=== PATIENT | female | born 1945 | race Caucasian/White ===

== ENCOUNTER → 2017-05-06 | Outpatient (CLI) | payer MEDICARE, BC ==
--- NOTE | 2017-05-08 09:35 | REPMRS ---
Patient History The patient states she had a clinical breast exam in 05/20 Patient is postmenopausal. No known family history of cancer. Taking unspecified hormones for 9 years. Digital Woman Screen Mammo: May 06, 2017 - Exam #: [id number] Bilateral CC and MLO view(s) were taken. Technologist: Michelle Lopez, Technologist Prior study comparison: May 14, 2016, digital woman screen mammo performed at [facility]. May 13, 2015, digital woman screen mammo performed at [facility]. May 13, 2014, digital woman screen mammo performed at [facility]. FINDINGS: There are scattered fibroglandular densities. There is a moderate amount of residual fibroglandular tissue which is fairly symmetric. There is no interval development of dominant mass, architectural distortion, or clustered microcalcification typical of malignancy. There has been no change in the appearance of the mammogram from the prior studies. ASSESSMENT: BI-RADS/ACR category 1 mammogram. Negative. Recommendation Routine screening mammogram of both breasts in 1 year (for women over age 40). This mammogram was interpreted with the aid of an FDA-approved computer-aided dectection system. Electronically Signed By: Ladarius العلي MD 05/08/17 0359
== END ==
LOC: M WHC 07:58
PROVIDERS: ATTEND Nurse Practitioner Family
DX: Z01.419 Encounter for gynecological examination (general) (routine) without abnormal findings (principal); Z12.31 Encounter for screening mammogram for malignant neoplasm of breast; Z78.0 Asymptomatic menopausal state; Z12.12 Encounter for screening for malignant neoplasm of rectum; Z92.0 Personal history of contraception
CPT/HCPCS: 82270; G0101; G0202

== ENCOUNTER → 2017-07-05 | Outpatient (REF) | payer MEDICARE, BC ==
[2017-07-05 20:07] LABS: BACTERIA, URINE MOD AMOUNT; HYALINE CAST, URINE NONE SEEN /lpf (0-1); MICROSCOPIC EXAM PERFORMED; RBC, URINE NONE SEEN /hpf (0-3); SQUAMOUS EPITHELIAL CELL URINE LARGE AMOUNT /hpf (SMALL AMT)
== END ==
LOC: M LAB REF 10:43
PROVIDERS: ATTEND Nurse Practitioner Adult Health
DX: N39.0 Urinary tract infection, site not specified (principal)

== ENCOUNTER → 2018-06-20 | Outpatient (CLI) | payer MEDICARE, BC | LOC: M WHC 09:33 | DX: Z12.31 Encounter for screening mammogram for malignant neoplasm of breast (principal); Z78.0 Asymptomatic menopausal state; Z92.29 Personal history of other drug therapy | CPT/HCPCS: 77067 ==

== ENCOUNTER 2018-09-06 06:37 | Emergency (ER) | payer MEDICARE, BC ==
[2018-09-06 08:17] LABS: ANION GAP 6 MEQ/L (8-16); BLOOD UREA NITROGEN 12 MG/DL (7-18); CALCIUM LEVEL 8.3 MG/DL (8.8-10.2); CARBON DIOXIDE LEVEL 28 MEQ/L (21-32); CHLORIDE LEVEL 107 MEQ/L (98-107); CREATININE FOR GFR 0.68 MG/DL (0.55-1.30); GLOMERULAR FILTRATION RATE > 60.0 (>39); GLUCOSE, FASTING 87 MG/DL (70-100); POTASSIUM SERUM 4.4 MEQ/L (3.5-5.1); SODIUM LEVEL 141 MEQ/L (136-145)
== END 2018-09-06 08:37 | disposition home or self-care (01) ==
LOC: M ED 06:37
DX: M79.661 Pain in right lower leg (principal); M79.662 Pain in left lower leg; Z79.890 Hormone replacement therapy; Z88.0 Allergy status to penicillin; Z88.2 Allergy status to sulfonamides
CPT/HCPCS: 93970

== ENCOUNTER → 2019-06-26 | Outpatient (CLI) | payer MEDICARE, BC ==
[~2019-06-26] MED LIST: AMOX; BENZ200C70; ESTR1MIS; PROAAER10
--- NOTE | 2019-06-26 10:51 | REPMRS ---
Patient History The patient states she had a clinical breast exam in 06/2019. Patient is postmenopausal. No known family history of cancer. Took unspecified hormones for 10 years. 3D TOMOSYNTHESIS WAS PERFORMED. [facility] lifetime risk for breast cancer is 2.9%. Digital Woman Screen Mammo: June 26, 2019 - Exam #: [id number] Bilateral CC and MLO view(s) were taken. Technologist: Vilma Bauman, Technologist Prior study comparison: June 20, 2018, bilateral digital woman screen mammo performed at [facility]. May 06, 2017, digital woman screen mammo performed at [facility]. FINDINGS: The breast tissue is heterogeneously dense. This may lower the sensitivity of mammography. There has been no change in the appearance of the mammogram from the prior studies. There is a moderate amount of residual fibroglandular tissue which is fairly symmetric. There is no interval development of dominant mass, areas of architectural distortion, or clustered microcalcification typical of malignancy. Assessment: BI-RADS/ACR category 1 mammogram. Negative Mammogram. Recommendation Routine screening mammogram in 1 year (for women over age 40). This mammogram was interpreted with the aid of an FDA-approved computer-aided dectection system. Electronically Signed By: Javier Toussaint MD 06/26/19 [id number]
== END ==
LOC: M WHC 08:46
PROVIDERS: ATTEND Nurse Practitioner Family
DX: Z12.31 Encounter for screening mammogram for malignant neoplasm of breast (principal); Z78.0 Asymptomatic menopausal state; Z92.29 Personal history of other drug therapy

== ENCOUNTER → 2019-08-17 | Outpatient (REF) | payer MEDICARE, BC | LOC: M SFHCWAGY 17:04 | PROVIDERS: ATTEND Nurse Practitioner Family | DX: R31.29 Other microscopic hematuria (principal) | CPT/HCPCS: 81002; 87086; G0463 ==

== ENCOUNTER → 2019-09-04 | Outpatient (REF) | LOC: M LAB LCGH 14:53 | PROVIDERS: ATTEND Physician Assistant | DX: D48.5 Neoplasm of uncertain behavior of skin (principal) ==

== ENCOUNTER → 2020-07-01 | Outpatient (CLI) | payer MEDICARE, BC ==
--- NOTE | 2020-07-01 12:34 | REPMRS ---
Patient History The patient states she has not had a clinical breast exam in over a year. No known family history of cancer. Took unspecified hormones for 10 years. Digital Woman Screen Mammo: July 01, 2020 - Exam #: [id number] Bilateral CC and MLO view(s) were taken. Technologist: Gwendolyn Trujillo, Technologist Prior study comparison: June 26, 2019, bilateral digital woman screen mammo performed at [facility]. June 20, 2018, bilateral digital woman screen mammo performed at [facility]. FINDINGS: The breast tissue is heterogeneously dense. This may lower the sensitivity of mammography. The Volpara volumetric breast density category is: C. There is a moderate amount of heterogeneously dense fibroglandular tissue which is fairly symmetric. There is no interval development of dominant mass, architectural distortion, or grouped microcalcification typical of malignancy. There has been no change in the appearance of the mammogram from the prior studies. 3-D tomosynthesis shows no additional findings. Assessment: BI-RADS/ACR category 1 mammogram. Negative Mammogram. Recommendation Routine screening mammogram of both breasts in 1 year (for women over age 40). This patient's Lifetime Breast Cancer RIsk is estimated at 2.7 %. This mammogram was interpreted with the aid of an FDA-approved computer-aided dectection system. Electronically Signed By: Ladarius العلي MD 07/01/20 2240
== END ==
LOC: M WHC 10:48
PROVIDERS: ATTEND Nurse Practitioner Family
DX: Z12.31 Encounter for screening mammogram for malignant neoplasm of breast (principal)

== ENCOUNTER 2020-09-20 09:07 | Emergency (ER) | payer MEDICARE, BC ==
[~2020-09-20] VITALS: Ht 170.2 cm; Wt 63.6 kg
--- NOTE | 2020-09-20 10:07 | REP ---
INDICATION: Syncope/near-syncope. COMPARISON: None. TECHNIQUE: SINGLE PORTABLE AP VIEW OF THE CHEST WAS PERFORMED. FINDINGS: THERE IS NO ACUTE INFILTRATE OR PULMONARY EDEMA. LUNGS ARE CLEAR. HEART IS NOT SIGNIFICANTLY ENLARGED. MEDIASTINAL SILHOUETTE IS UNREMARKABLE. THE VISUALIZED OSSEOUS STRUCTURES ARE INTACT. IMPRESSION: NO ACUTE PULMONARY DISEASE. <Electronically signed by Javier Toussaint > 09/20/20 1007
[2020-09-20 10:16] LABS: BASO % 0.8 % (0.0-1.0); EOS # 0.1 10^3/uL (0.0-0.5); EOS % 1.5 % (0.0-3.0); HEMATOCRIT 42.4 % (36.0-47.0); HEMOGLOBIN 13.4 g/dl (12.0-15.5); LYMPH # 0.8 10^3/uL (1.5-5.0); LYMPH % 15.1 % (24.0-44.0); MEAN CORPUSCULAR HGB CONC 31.6 g/dl (32.0-36.5); MEAN CORPUSCULAR VOLUME 95.1 fl (80.0-96.0); MONO # 0.4 10^3/uL (0.0-0.8); MONO % 6.8 % (0.0-5.0); NEUTROPHILS % 75.4 % (36.0-66.0); PLATELET COUNT, AUTOMATED 240 10^3/uL (150-450); RED BLOOD COUNT 4.46 10^6/uL (4.00-5.40); WHITE BLOOD COUNT 5.3 10^3/uL (4.0-10.0)
[2020-09-20 10:47] LABS: BLOOD UREA NITROGEN 15 MG/DL (7-18); CALCIUM LEVEL 9.2 MG/DL (8.8-10.2); CARBON DIOXIDE LEVEL 32 MEQ/L (21-32); CHLORIDE LEVEL 106 MEQ/L (98-107); CPK CREATINE PHOSPHOKINASE 45 U/L (26-192); CREATININE FOR GFR 0.78 MG/DL (0.55-1.30); GLOMERULAR FILTRATION RATE > 60.0 (>39); GLUCOSE, FASTING 85 MG/DL (70-100); MB/CK RELATIVE INDEX 4.44 (< OR =4); POTASSIUM SERUM 4.6 MEQ/L (3.5-5.1); SODIUM LEVEL 140 MEQ/L (136-145); TROPONIN I < 0.02 NG/ML (< 0.10)
[2020-09-20] MEDS ORDERED: NS 500 ML IV ONE (11:00)
--- NOTE | 2020-09-20 11:58 | REPVR ---
PROCEDURE INFORMATION: Exam: CT Head Without Contrast Exam date and time: 09/20/2020 11:46 AM Age: 75 years old Clinical indication: Pain; Headache; Additional info: Elevated blood pressure, pre syncope, headache TECHNIQUE: Imaging protocol: Computed tomography of the head without contrast. Radiation optimization: All CT scans at this facility use at least one of these dose optimization techniques: automated exposure control; mA and/or kV adjustment per patient size (includes targeted exams where dose is matched to clinical indication); or iterative reconstruction. COMPARISON: No relevant prior studies available. FINDINGS: Brain: There is no acute intracranial hemorrhage or mass effect. Mild diffuse volume loss is within the range of normal for patient age. There are small vessel ischemic changes within the periventricular and subcortical white matter, but the normal cano/white matter delineation is maintained. Cerebral ventricles: No ventriculomegaly. Bones/joints: Unremarkable. No acute fracture. Paranasal sinuses: Visualized sinuses are unremarkable. No fluid levels. Mastoid air cells: Visualized mastoid air cells are well aerated. Soft tissues: Unremarkable. IMPRESSION: No acute intracranial hemorrhage or edema. Electronically signed by: Alida Lind On 09/20/2020 11:58:38 AM
[2020-09-20] MEDS ORDERED: lisinopriL 10 MG TAB PO ONE ×2 (13:00→15:15)
[2020-09-20 13:30] LABS: CK-MB VALUE MASS 1.9 NG/ML (<3.6); CPK CREATINE PHOSPHOKINASE 40 U/L (26-192); MB/CK RELATIVE INDEX 4.75 (< OR =4); TROPONIN I < 0.02 NG/ML (< 0.10)
[2020-09-20] MEDS ORDERED: FUROSEMIDE 40MG/4ML VIAL (J1940) IV ONE (15:15)
[2020-09-20] MEDS ORDERED: CARVedilol 6.25 MG TAB PO ONE (16:30)
[2020-09-20 16:44] VITALS: BP 177/97
[2020-09-20] MEDS ORDERED: ISOVUE-370 76% 100ML VIAL As Ordered ONE (16:52)
[2020-09-20] MEDS ORDERED: LISI10TA4 PO (17:54)
[2020-09-20] MEDS ORDERED: CARV6.25 PO (17:54)
[2020-09-20] MEDS ORDERED: CHLO125TA PO (17:54)
--- NOTE | 2020-09-20 18:10 | REPVR ---
PROCEDURE INFORMATION: Exam: CT Abdomen And Pelvis With Contrast Exam date and time: 09/20/2020 5:09 PM Age: 75 years old Clinical indication: Other: Fluctuation of BP, concern for adrenal mass TECHNIQUE: Imaging protocol: Computed tomography of the abdomen and pelvis with intravenous contrast. Radiation optimization: All CT scans at this facility use at least one of these dose optimization techniques: automated exposure control; mA and/or kV adjustment per patient size (includes targeted exams where dose is matched to clinical indication); or iterative reconstruction. Contrast material: ISOVUE 370; Contrast volume: 100 ml; Contrast route: INTRAVENOUS (IV); COMPARISON: No relevant prior studies available. FINDINGS: Lungs: Clear appearing lung bases. Heart: There is mild cardiomegaly and no evidence of pericardial effusion. Liver: Normal appearing liver. Gallbladder and bile ducts: Normal appearing gallbladder. Normal common bile duct. Pancreas: Pancreas is normal in size. Spleen: Normal size spleen. Adrenal glands: Normal. No mass. Kidneys and ureters: There is enhancement of both kidneys. Stomach and bowel: The cecum is in the right pelvis and there is no evidence of inflammation in the region of the cecum. Intraperitoneal space: There is no evidence of mesenteric mass. Vasculature: There is severe calcification at the origin of the right renal artery consistent with renal artery stenosis. There is stenosis at the origin of the celiac artery. There is opacification of the SMA. There is opacification of the aorta with calcified atherosclerotic changes. Lymph nodes: There is no evidence of lymphadenopathy. Urinary bladder: Normal urinary bladder. Reproductive: There is a pessary within the vagina. Patient is status post hysterectomy. Bones/joints: There is a grade 2 spondylolisthesis of L5 on S1 producing severe central spinal canal stenosis and L5 neural foraminal narrowing. Soft tissues: Unremarkable. IMPRESSION: 1. There is calcification in narrowing at the origin of the right renal artery. 2. Normal sized adrenal glands. 3. There is severe central spinal canal stenosis L5-S1. Electronically signed by: Sameer Keating On 09/20/2020 18:10:14 PM
[2020-09-20 18:30] VITALS: BP 137/66
--- NOTE | 2020-09-20 21:03 | ECGEPIP ---
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
== END 2020-09-20 18:44 | disposition home or self-care (01) ==
LOC: M ED 09:07
DX: I10 Essential (primary) hypertension (principal); R55 Syncope and collapse; R00.1 Bradycardia, unspecified; I34.1 Nonrheumatic mitral (valve) prolapse; K57.90 Diverticulosis of intestine, part unspecified, without perforation or abscess without bleeding; K64.9 Unspecified hemorrhoids; Z88.0 Allergy status to penicillin; Z88.2 Allergy status to sulfonamides
CPT/HCPCS: 36415; 70450; 71045; 74177; 80048; 81001; 82550; 82553; 84443; 84484; 85025; 87086; 93005; 93041; 94760; 96361; 96374; 99285; J1940; Q9967

== ENCOUNTER → 2020-10-04 | Outpatient (POV) | payer MEDICARE, BC ==
[~2020-10-04] MED LIST changes: +CARV6.25 PO; +CHLO125TA PO; +LISI10TA4 PO
--- NOTE | 2020-10-06 13:53 | IRCOV ---
[facility] IR Consult Office Visit IR Consult Office Visit DATE: Oct 04, 2020 Patient agreed to this telephone consultation. I spent 30 minutes reviewing patient's records, imaging and talking to the patient. REASON FOR CONSULTATION/CHIEF COMPLAINT: Refractory hypertension. Renal artery stenosis. HISTORY OF PRESENT ILLNESS: 75-year-old female previously well, presented with headache, blurred vision and dizziness a few weeks ago. She was seen in the ER where her blood pressure was 220/170. Patient states she had her last annual checkup in April 2020 at which time, there were no problems reported. She has never herself checked her blood pressure before. She denies any chest pain, shortness of breath, altered speech or limb weakness associated. She was started on 2 blood pressure medications and now checks her blood pressure at home and reports they run around 144/74. She denies any side effects of the medications. She is currently on Lisinopril 10 mg twice a day, carvedilol 6.25 mg twice a day and chlorthalidone 12.5 mg when necessary for systolic blood pressure greater than 140. She is taking 81 mg aspirin and atorvastatin. ALLERGIES: Please see below. HOME MEDICATIONS: Please see below. PAST MEDICAL HISTORY: Malignant hypertension Renal artery stenosis Cardiomegaly Degenerative joint disease PAST SURGICAL HISTORY: Hysterectomy FAMILY HISTORY: Coronary artery disease SOCIAL HISTORY: Nonsmoker. Denies alcohol or drugs. REVIEW OF SYSTEMS: Otherwise negative. PHYSICAL EXAMINATION: No video on patient side. LABORATORY DATA: 09/20/2020 hemoglobin 13.4 hematocrit 42.4 WBC 5.3 platelets 240 sodium 140 potassium 4.6 BUN 15 creatinine 0.78 GFR greater than 60 fasting glucose 85 TSH 3.6 Imaging: I personally reviewed the CT abdomen and pelvis with IV contrast performed September 2020. There is a bulky calcification at the origin of the right renal artery with associated stenosis. No accessory renal artery seen. Both kidneys appear unremarkable in size. ASSESSMENT/PLAN: 75-year-old female with malignant hypertension and renal artery stenosis. I agree patient would benefit from a renal angiogram and/or stenting if deemed necessary at the same time. We discussed the risks and benefits of the procedure. Patient would like to proceed and we've scheduled the procedure for late November. This allows time for her to settle on her new medications and for us to gain an understanding of her optimal blood pressure on 2 medications. Thank you for this referral. CC Dr. Fernandez CC Jennifer Duffy SPEEDER TENDER Cc Dr. Chay Olmos cardiology Allergies Coded Allergies: Penicillins (Verified Allergy, Severe, hives, 09/20/20) Sulfa (Sulfonamide Antibiotics) (Verified Allergy, Severe, hives, 09/20/20 ) Home Medications Scheduled Carvedilol (Carvedilol), 1 TAB PO BID Chlorthalidone (Chlorthalidone), 12.5 MG PO DAILY Lisinopril (Lisinopril), 1 TAB PO BID FÉLIX MARTINS MD Oct 06, 2020 13:52
== END ==
LOC: M TMIRPOV 11:17
PROVIDERS: ATTEND Radiology Diagnostic Radiology
DX: I15.0 Renovascular hypertension (principal); I70.1 Atherosclerosis of renal artery; I51.7 Cardiomegaly; Z79.899 Other long term (current) drug therapy; Z88.0 Allergy status to penicillin; Z88.2 Allergy status to sulfonamides; Z90.710 Acquired absence of both cervix and uterus

== ENCOUNTER → 2020-12-05 | Outpatient (CLI) | payer MEDICARE, BC ==
[~2020-12-05] MED LIST changes: +ACETAMINOPHEN 500 MG TAB PO ONE; +DAILTAB PO; +ISOVUE-300 61% 50ML VIAL As Ordered ONE; +LIDOCAINE 1% MDV 20ML VIAL As Ordered ONE; +LIPI20TA PO; +MIDAZOLAM INJ 2MG/2ML VIAL (J2250 PER 1MG) As Ordered ONE; +[UNRECOGNIZED DRUG - CODE]; +diphenhydrAMINE 50MG/ML VIAL (J1200) As Ordered ONE; +fentaNYL 100 MCG/2 ML INJECTION (J3010) As Ordered ONE
--- NOTE | 2020-12-05 09:35 | IRHP ---
[facility] IR Pre-Procedure H & P General Date of Service: Dec 05, 2020 Procedure: Same Day Surgery Interval History and Physical I have seen the patient and reviewed last H & P performed within 30 days. There is no significant interval change. History of Present Illness Chief Complaint The patient is a 75-year-old female admitted with a reason for visit of Refractory Htn, Sandeep. PRE-PROCEDURE DIAGNOSIS: SANDEEP HEART: Normal rate. LUNGS: Normal breathing at rest. ASA Classification ASA Classification: III-Severe systemic dis. Mallampati Score: II NPO: Yes Problems with prior sedation: No Obstructive Sleep Apnea: No Plan moderate sedation Allergies Coded Allergies: Penicillins (Verified Allergy, Severe, hives, 09/20/20) Sulfa (Sulfonamide Antibiotics) (Verified Allergy, Severe, hives, 09/20/20) amoxicillin (Verified Allergy, Mild, 12/01/20) ampicillin (Verified Allergy, Mild, 12/01/20) clavulanic acid (Verified Allergy, Mild, 12/01/20) Home Medications Scheduled Atorvastatin Calcium (Lipitor), 40 MG PO DAILY, (Reported) Carvedilol (Carvedilol), 1 TAB PO BID Chlorthalidone (Chlorthalidone), 12.5 MG PO DAILY Lisinopril (Lisinopril), 1 TAB PO BID Miscellaneous Medications Multivit with Calcium,Iron,Min (Essential Daily), 1 TAB PO, (Reported) Vitamin E (Dl,Tocopheryl Acet) (Vitamin E), (Reported) VS, I&O, 24H, Fishbone Vital Signs/I&O Vital Signs Date Time Temp Pulse Resp B/P (MAP) Pulse Ox O2 Delivery O2 Flow Rate FiO2 12/05/20 08:45 97.3 58 18 99 Room Air Laboratory Data 24H LABS Laboratory Tests 2 12/05/20 09:15: CBC/BMP FÉLIX MARTINS MD Dec 05, 2020 09:35
[2020-12-05 09:37] LABS: HEMATOCRIT 37.3 % (36.0-47.0); HEMOGLOBIN 11.7 g/dl (12.0-15.5); MEAN CORPUSCULAR HEMOGLOBIN 29.9 pg (27.0-33.0); MEAN CORPUSCULAR HGB CONC 31.4 g/dl (32.0-36.5); MEAN CORPUSCULAR VOLUME 95.4 fl (80.0-96.0); PLATELET COUNT, AUTOMATED 221 10^3/uL (150-450); RED BLOOD COUNT 3.91 10^6/uL (4.00-5.40)
[2020-12-05 09:59] LABS: BLOOD UREA NITROGEN 19 MG/DL (7-18); CALCIUM LEVEL 9.2 MG/DL (8.8-10.2); CARBON DIOXIDE LEVEL 29 MEQ/L (21-32); CHLORIDE LEVEL 105 MEQ/L (98-107); CREATININE FOR GFR 0.89 MG/DL (0.55-1.30); GLOMERULAR FILTRATION RATE > 60.0 (>39); GLUCOSE, FASTING 94 MG/DL (70-100); POTASSIUM SERUM 4.2 MEQ/L (3.5-5.1); SODIUM LEVEL 140 MEQ/L (136-145)
[2020-12-05 14:20] VITALS: BP 132/62
--- NOTE | 2020-12-08 10:09 | POST-OPPD ---
Postoperative Procedure Note Date Of Procedure: Dec 05, 2020 Time Of Procedure: 16:00 IR BILATERAL RENAL ANGIOGRAM. Clinical Information: Hypertension refractory to 3 antihypertensives. Renal stenosis on CT scan. Physician: Dr. Martins. Procedure: The patient was advised of the benefits, risks, and alternatives of the procedure and informed consent was obtained. A time out was performed with verification of the patient's name, MRN, site of procedure, and type of procedure to be performed. The patient was positioned in the supine position on the angiographic table. The site was prepped and draped in the usual sterile fashion. Moderate sedation was not performed as patient is bradycardic. The physician spent 45 minutes of continuous bddo-ni-hjum time with the patient. A audograph operator radiograph reveals no gross abnormality. Lidocaine was used for local anesthesia. The right common femoral artery was accessed, under fluoroscopy guidance with a microintroducer set. A short 0.018" [place] wire was inserted and the needle was exchanged for a 4 Fr microintroducer sheath. The guidewire and dilator were removed and a 0.035" Bentson wire was placed into the abdominal aorta. A 6 Fr sheath was placed over the wire. A 6 Togolese renal double curve guiding catheter was then advanced over the wire and used to catheterize the right renal artery under fluoroscopy guidance. Wire was advanced under fluoroscopic guidance into the right renal artery and the guiding catheter was retracted into the aorta. And angiogram was performed this demonstrates rapid filling of bilateral renal arteries with no significant delay, stenosis or occlusion. The catheter, wire and sheath were removed. A Mynx device was used to close the right groin arteriotomy, pressure held and hemostasis achieved. A sterile dressing was applied to the site. The patient tolerated the procedure well and was returned to the PRU in stable condition. EBL: < 5 mL. Complications:None. Impression: Bilateral renal angiogram demonstrates no significant stenosis or occlusion to renal artery flow. Rapid filling of bilateral renal arteries from the aorta. The calcification at the ostium of the right renal artery does not compromise flow into the right kidney. Thank you for this referral Cc Dr. Fernandez CC Jennifer Duffy CLIENT SUPPORT CONSULTANT Cc Dr. Chay Olmos cardiology FÉLIX MARTINS MD Dec 08, 2020 10:09
== END ==
LOC: M IRPRO 08:11
PROVIDERS: ATTEND Radiology Diagnostic Radiology
DX: I10 Essential (primary) hypertension (principal); I70.1 Atherosclerosis of renal artery; Z88.0 Allergy status to penicillin; Z88.1 Allergy status to other antibiotic agents; Z88.2 Allergy status to sulfonamides; Z88.8 Allergy status to other drugs, medicaments and biological substances
CPT/HCPCS: 36200; 75833; 80048; 85027; C1760; C1769; C1887; C1894; G0269; J1200; J1644; J2250; J3010; Q9967

== ENCOUNTER → 2020-12-16 | Outpatient (CLI) | payer MEDICARE, BC ==
[~2020-12-16] MED LIST changes: -ACETAMINOPHEN 500 MG TAB PO ONE; -ISOVUE-300 61% 50ML VIAL As Ordered ONE; -LIDOCAINE 1% MDV 20ML VIAL As Ordered ONE; +LISI10TA22 PO; -LISI10TA4 PO; -MIDAZOLAM INJ 2MG/2ML VIAL (J2250 PER 1MG) As Ordered ONE; -diphenhydrAMINE 50MG/ML VIAL (J1200) As Ordered ONE; -fentaNYL 100 MCG/2 ML INJECTION (J3010) As Ordered ONE
--- NOTE | 2020-12-16 11:54 | REP ---
INDICATION: ELEVATED PHOS ? PAGETS DZ. Abnormal levels of other serum enzymes. Elevated alkaline phosphatase. COMPARISON: None. TECHNIQUE/RADIOTRACER AND DOSE: 22.0 mCi of Technetium-99m MDP was injected and standard whole-body bone scanning is acquired. FINDINGS: There is a normal distribution of skeletal tracer with uptake in bilateral kidneys and in the urinary bladder. There is no evidence to suggest skeletal metastatic disease. There are arthritic foci of increased uptake involving each wrist, each mid foot, and the lower cervical spine facet joint region. There is mild degenerative uptake in the lower lumbar spine as well. 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 There is no evidence to suggest Paget's disease or metastatic skeletal disease by scintigraphy.. <Electronically signed by Ladarius العلي > 12/16/20 0883
== END ==
LOC: M RAD 07:49
PROVIDERS: ATTEND Nurse Practitioner Adult Health
DX: R74.8 Abnormal levels of other serum enzymes (principal)
CPT/HCPCS: 78306; A9503

== ENCOUNTER → 2020-12-20 | Outpatient (POV) | payer MEDICARE, BC ==
--- NOTE | 2020-12-22 12:00 | IRPN ---
[facility] IR Progress Note IR Progress Note DATE: Dec 20, 2020 Patient agreed to this telephone follow-up. I spent 5 minutes talking to the patient. FOLLOW-UP: 75-year-old female status post bilateral renal angiography. Angiography showed good flow from the aorta to the bilateral renal arteries without need for stenting. Patient states the groin access site is healed well without bruising, swelling or pain. ON EXAMINATION: No video on patient side. IMPRESSION: Doing well status post bilateral renal angiography. No issues at access site. Patient did not require angioplasty or stenting as she has good flow from the aorta to the bilateral renal arteries. No further follow-up scheduled unless initiated by patient and/or referring provider. Thank you for this referral. Allergies Coded Allergies: Penicillins (Verified Allergy, Severe, hives, 09/20/20) Sulfa (Sulfonamide Antibiotics) (Verified Allergy, Severe, hives, 09/20/20) amoxicillin (Verified Allergy, Mild, 12/01/20) ampicillin (Verified Allergy, Mild, 12/01/20) clavulanic acid (Verified Allergy, Mild, 12/01/20) FÉLIX MARTINS MD Dec 22, 2020 12:00
== END ==
LOC: M TMIRPOV 12:52
PROVIDERS: ATTEND Radiology Diagnostic Radiology
DX: Z48.816 Encounter for surgical aftercare following surgery on the genitourinary system (principal); Z88.0 Allergy status to penicillin; Z88.1 Allergy status to other antibiotic agents; Z88.2 Allergy status to sulfonamides; Z88.8 Allergy status to other drugs, medicaments and biological substances

== ENCOUNTER → 2021-10-10 | Outpatient (CLI) | payer MEDICARE, BC ==
--- NOTE | 2021-10-11 09:08 | REPMRS ---
Patient History The patient states she had a clinical breast exam in 05/2021. No known family history of cancer. Took unspecified hormones for 10 years. Patient states no breast complaints today. Patient has signed MRS History Sheet. Moderna 12/2020, 01/2021, booster 09/18/21 L arm. Digital Woman Screen Mammo: October 10, 2021 - Exam #: [id number] Bilateral CC and MLO view(s) were taken. Technologist: Vilma Bauman, Technologist Prior study comparison: July 01, 2020, bilateral digital woman screen mammo performed at [facility]. June 26, 2019, bilateral digital woman screen mammo performed at [facility]. FINDINGS: The breast tissue is heterogeneously dense. This may lower the sensitivity of mammography. Screening. Digital screening (2D) mammography was performed bilaterally in the CC and MLO projections. Additionally, breast tomosynthesis (3D mammography) was performed bilaterally in the CC and MLO projections. Todays exam was compared to the prior exam/exams. By history, the patient has no complaints of a palpable breast abnormality or other significant breast complaints. The Volpara volumetric breast density category is C, the breasts are heterogenously dense which may obscure small masses. The breasts are unchanged in size and shape. There are no myesha-soft tissue densities or spiculated masses. There is no internal architectural distortion. There are stable benign coarse and vascular calcifications seen in both breasts.There are no suspicious myesha-calcific clusters. Skin thickening or nipple retraction is not present. IMPRESSION: BI-RADS Category 2- Benign Findings. There is no evidence of malignant alteration of the breasts. Followup examination recommended in one year. This mammogram was read with the assistance of [facility],an FDA approved computer aided detection system for mammography. The lifetime Tyrer-Cuzick score is 2.5% Negative x-ray reports should not delay surgical consultation if a dominant or clinically suspicious mass is present. Due to the density of the breasts, MRI/whole breast screening ultrasound is warranted. Not all breast cancers can be identified by mammography. Therefore, we recommend that you continue to perform regular breast self-examination and physical examination and then promptly contact your physician of any concerns or changes. Adenosis and dense breasts may obscure an underlying neoplasm. No significant changes when compared with prior studies. Assessment: BI-RADS/ACR category 2 mammogram. Benign Findings. Recommendation Routine screening mammogram of both breasts in 1 year. Electronically Signed By: Saman Cardozo MD 10/11/21 0985
== END ==
LOC: M WHC 16:18
PROVIDERS: ATTEND Advanced Practice Midwife
DX: Z12.31 Encounter for screening mammogram for malignant neoplasm of breast (principal)

== ENCOUNTER → 2021-10-24 | Outpatient (REF) | payer MEDICARE, BC | LOC: M SFHCWAGY 12:54 | PROVIDERS: ATTEND Specialist | DX: N89.8 Other specified noninflammatory disorders of vagina (principal) ==

== ENCOUNTER → 2022-06-04 | Outpatient (CLI) | payer MEDICARE, BC | LOC: M RAD 06:53 | PROVIDERS: ATTEND Nurse Practitioner Adult Health | DX: I77.810 Thoracic aortic ectasia (principal) ==

== ENCOUNTER → 2022-06-11 | Outpatient (REF) | payer MEDICARE, BC | LOC: M LAB REF 16:05 | PROVIDERS: ATTEND Nurse Practitioner Adult Health | DX: I11.9 Hypertensive heart disease without heart failure (principal) ==

== ENCOUNTER → 2022-10-12 | Outpatient (CLI) | payer MEDICARE, BC | LOC: M WHC 06:44 | PROVIDERS: ATTEND Nurse Practitioner Family | DX: Z12.31 Encounter for screening mammogram for malignant neoplasm of breast (principal) ==

== ENCOUNTER → 2024-01-10 | Outpatient (CLI) | payer MEDICARE, BC ==
[~2024-01-10] MED LIST changes: -ESTR1MIS; +ESTR1VAG3
== END ==
LOC: M WHC 11:00
PROVIDERS: ATTEND Nurse Practitioner Family
DX: Z12.31 Encounter for screening mammogram for malignant neoplasm of breast (principal); R92.333 Mammographic heterogeneous density, bilateral breasts

== ENCOUNTER → 2025-02-18 | Outpatient (CLI) | payer MEDICARE, BC | LOC: M WHC 08:53 | PROVIDERS: ATTEND Nurse Practitioner Family | DX: Z12.31 Encounter for screening mammogram for malignant neoplasm of breast (principal); R92.333 Mammographic heterogeneous density, bilateral breasts ==